=== PATIENT | male | born 1980 | race Two or more races ===

== ENCOUNTER 2019-02-06 23:56 | Emergency (ER) | payer MEDICAID ==
[~2019-02-06] VITALS: Ht 180.3 cm; Wt 82.6 kg
[2019-02-07 00:03] VITALS: Ht 180.3 cm; Wt 82.6 kg
[2019-02-07 00:49] VITALS: BP 141/94
== END 2019-02-07 00:49 | disposition home or self-care (01) ==
LOC: ED 23:56
DX: R06.00 Dyspnea, unspecified (principal); F17.200 Nicotine dependence, unspecified, uncomplicated
CPT/HCPCS: 99406; Q0092